=== PATIENT | female | born 1945 | race Hispanic/Latino ===

== ENCOUNTER 2024-12-18 17:25 | Emergency (ER) | payer OTHER ==
[~2024-12-18] VITALS: Ht 152.4 cm; Wt 44.0 kg
[~2024-12-18 17:25] MED LIST: ERGO500093 PO; LACT-441 PO; ONDA-243 PO; SOFO1TAB3 PO; VITA1CAP85 PO; [UNRECOGNIZED DRUG - CODE] PO; [UNRECOGNIZED DRUG - CODE] TP
--- NOTE | 2024-12-18 18:25 | ERN ---
General Chief Complaint: Wrist Pain/Injury Stated Complaint: HIP PAIN Time Seen by MD: 17:30 Time Seen by Midlevel: 17:30 Source: patient History of Present Illness Initial Comments 71-year-old female presents to the ER with swelling to the left forearm. Patient states that several days ago she hit her left forearm and has been having pain but today she developed swelling which prompted the ER visit Allergies: Coded Allergies: No Known Allergies (Unverified Allergy, Unknown, 09/07/24) Home Meds Reported Medications Lactulose (Lactulose) 10 Gram/15 Ml Solution, 30 ML PO QID PRN for CONSTIPATION, #500 ML 0 Refills 09/18/24 Ondansetron (Ondansetron Odt) 4 Mg Tab.rapdis, 1 TAB PO Q6HPRN PRN for nausea/vomiting for 4 Days, #16 TAB 0 Refills 09/18/24 Melatonin (Melatonin) 2.5 Mg Tab.chew, 1 TAB PO HS for sleep for 30 Days, #30 TAB 0 Refills 09/18/24 Sofosbuvir/Velpatasvir (Sofosbuvir-Velpatasvir 400-100) 400 Mg-100 Mg Tablet, 1 TAB PO DAILY for 28 Days, #28 TAB 0 Refills 09/18/24 Lidocaine (Tridacaine III) 5 % Adh..patch, 1 EACH TP DAILY, ADH.PATCH 09/18/24 Ergocalciferol (Vitamin D2) (Vitamin D2) 1,250 Mcg (60233 Unit) Capsule, 1 CAP PO QWEEK for 28 Days, #4 CAP 0 Refills 09/07/24 Vitamin B Complex (Vitamin B Complex) 1 Each Capsule, 1 EACH PO DAILY, CAP 09/07/24 Past Medical History Past Medical History: Arthritis, Other Medical History Other: OSTEOPOROSIS Past Surgical History: Other Surgical History Other: LEFT HIP ARTHOPLASTY ROS Dictation CONSTITUTIONAL: Negative except for HPI HEAD/FACE: Negative except for HPI EENT: Negative except for HPI RESPIRATORY: Negative except for HPI GASTROINTESTINAL/ABDOMINAL: Negative except for HPI GENITOURINARY: Negative except for HPI MUSCULOSKELETAL: Negative except for HPI INTEGUMENTARY: Negative except for HPI NEUROLOGICAL/PSYCH: Negative except for HPI HEMATOLOGIC/LYMPHATIC: Negative except for HPI All Systems Negative, Except as noted above. 13 point review of systems assessed and all negative except for above. MDM MDM: 71-year-old female presents to the ER with swelling to the left forearm. Patient states that several days ago she hit her left forearm and has been having pain but today she developed swelling which prompted the ER visit On physical examination the patient has mild swelling and tenderness to the distal left ulna, good radial pulse normal capillary refill and good range motion of the left wrist and elbow. X-ray performed with the forearm reveals a distal ulnar fracture with no displacement. Sugar-tong splint was placed and the patient will be referred with orthopedic surgeon outpatient Differential diagnosis: Fracture, contusion, dislocation There are no social concerns with this patient. Prescription drug management Prescriptions will include: None Medical management and examination interpretation discussions were had by me with other qualified healthcare professionals as indicated for the patient's care. ED Course Orders Procedure Category Date Status Time Forearm 2vws Lt RAD 12/18/24 Taken 17:32 Vital Signs Date Time Temp Pulse Resp B/P (MAP) Pulse Ox O2 Delivery O2 Flow Rate FiO2 12/18/24 17:26 98.6 86 16 161/103 96 Room Air 0 DX & DISP Disposition: Discharge Departure Impression: Primary Impression: Left ulnar fracture Condition: Stable Additional Instructions: Your x-ray shows a distal ulnar fracture. You will need to see an orthopedic surgeon outpatient. You may continue with Tylenol and Motrin as needed for pain. Referrals: FRANCE GUILLAUME MD (PCP) BECKY ISABEL MD I have reviewed the case, and I agree with, Diagnosis and Plan I performed the substantive portion of the visit. I have reviewed and personally made and approve the management plan that is documented in the note by myself or the KELLIE. I acknowledge for responsibility for the patient's management plan. SOPHIA HARDY PAC Dec 18, 2024 18:25
--- NOTE | 2024-12-18 19:39 | HMCIMG ---
EXAM: CR Left Forearm, 2 View. CLINICAL HISTORY: r/o fx COMPARISON: Radiograph from September 07, 2024. 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 Subacute to chronic nondisplaced fracture at the distal radius without callus formation. No additional acute fractures appreciated. 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 Joint spaces remain anatomically aligned. IMPRESSION: 1. Subacute to chronic ununited fracture at the distal ulnar diaphysis. 2. Subacute to chronic nondisplaced fracture at the distal radius without callus formation. /Nahma
[2024-12-18 21:04] VITALS: BP 137/92; PULSE 91; RESP 18; TEMP 98.3; O2SAT 95
== END 2024-12-18 21:04 | disposition home or self-care (01) ==
LOC: EDH 17:25
DX: S52.692A Other fracture of lower end of left ulna, initial encounter for closed fracture (principal); W22.03XA Walked into furniture, initial encounter; Y93.89 Activity, other specified; Y92.89 Other specified places as the place of occurrence of the external cause; Y99.8 Other external cause status
CPT/HCPCS: 99283; 73090; 29125; 96372; J2270; 29515